=== PATIENT | male | born 1945 | race Caucasian/White ===

== ENCOUNTER 2017-01-04 15:28 | Observation (INO) | payer MEDICARE, OTHER ==
[2017-01-04] MEDS ORDERED: Pepcid 20 MG VIAL IV ONE ×2 (15:33→15:58)
[2017-01-04] MEDS ORDERED: BABY ASPIRIN 81 MG CHEW PO ONE (15:33)
[2017-01-04] MEDS ORDERED: NITRO-BID 2% UD PACKETS TOP ONE (15:33)
--- NOTE | 2017-01-04 15:39 | ERPHSYRPT ---
- History of Present Illness Time Seen by Provider: 01/04/17 15:33 Historian: patient Physician History: CC: chest pain Hx: 71 y/o patient of [place] and Dr Ames. He had prior coronary stenting 20 years ago. Today while watching TV he had a sharp burning pain and soreness in chest and below shoulder blades about an hour ago. Better now. Shoulder blade pain still present. He has had some pain like this in the past 3 weks which is unsual. Takes a baby asa daily. Does not use NTG. ILL: DM, CAD s/p stenting 20 years ago, HTN, hypothyroidism Surg: Coronary stenting Social: , nonsmoker, no alcohol ALL: None Activities at Onset: rest (watching TV) Severity of Pain-Max: severe Severity of Pain-Current: mild Nitro Today/Relief: no nitro taken today Aspirin Treatment Today: 81 mg x 2, provided by ED Allergies/Adverse Reactions: No Known Drug Allergies Allergy (Unverified 01/04/17 15:40) Home Medications: Acarbose 50 mg PO TID 06/08/12 [History] Folic Acid 0.4 mg PO DAILY 06/08/12 [History] Glipizide Xl 10 mg [Glucotrol Xl 10 MG] 10 mg PO BID 06/08/12 [History] Ibuprofen 200 mg PO QID 06/08/12 [History] Losartan Potassium 25 mg PO DAILY 06/08/12 [History] Metformin HCl 1000 mg [Glucophage 1000 MG] 1,000 mg PO BID 06/08/12 [History] Metoprolol Tartrate 25 mg [Lopressor 25MG Tab] 50 mg PO BID 06/08/12 [History ] Simvastatin 40 mg [Zocor 40 mg] 40 mg PO DAILY 06/08/12 [History] Brimonidine Tartrate 5 ml OP TID 01/04/17 [History] Brinzolamide [Azopt] 5 ml OP TID 01/04/17 [History] Furosemide 20 mg PO DAILY 01/04/17 [History] Latanoprost 2.5 ml OP DAILY 01/04/17 [History] Levothyroxine Sodium 100 Mcg [Synthroid 100 Mcg] 100 mcg PO DAILY 01/04/17 [History] Vitamin E 400 Units [Vitamin E 400 UNIT SOFTGEL] 400 unit PO DAILY [History] Hx Tetanus, Diphtheria Vaccination/Date Given: Yes (unknown) Hx Influenza Vaccination/Date Given: Yes (may 2012) Hx Pneumococcal Vaccination/Date Given: Yes (2010) - Review of Systems Constitutional: Malaise, No Fever, No Chills Eyes: No Symptoms Ears, Nose, & Throat: No Symptoms Respiratory: No Cough, No Dyspnea Cardiac: Chest Pain Abdominal/Gastrointestinal: Nausea, Vomiting (X1 with the chest pain), No Abdominal Pain Genitourinary Symptoms: No Symptoms Musculoskeletal: Back Pain Skin: No Rash Neurological: No Headache All Other Systems: Reviewed and Negative - Past Medical History Pertinent Past Medical History: Yes ENT History: No Pertinent History Cardiac History: Coronary Artery Disease, High Cholesterol, Hypertension Respiratory History: No Pertinent History Endocrine Medical History: Diabetes Type II, Hypothyroidism Musculoskeletal History: No Pertinent History GI Medical History: No Pertinent History History: No Pertinent History Psycho-Social History: No Pertinent History Male Reproductive Disorders: No Pertinent History - Past Surgical History Past Surgical History: Yes Cardiac: Cardiac Catheterization, Cardiac Stent - Social History Smoking Status: Never smoker Drug Use: none Patient Lives Alone: No - Physical Exam General Appearance: alert Eye Exam: PERRL/EOMI Ears, Nose, Throat Exam: normal ENT inspection, moist mucous membranes Neck Exam: normal inspection, non-tender, supple Respiratory Exam: normal breath sounds, lungs clear Cardiovascular Exam: regular rate/rhythm, No murmur Gastrointestinal/Abdomen Exam: soft, No tenderness, No distention, No mass, No guarding Extremity Exam: pedal edema Neurologic Exam: alert, oriented x 3, cooperative, sensation nml, No motor deficits Skin Exam: warm, dry, No rash - Course Nursing assessment & vital signs reviewed: Yes EKG Interpreted by Me: RATE (76), Sinus Rhythm, NORMAL AXIS, NORMAL INTERVALS ( QTc 429), NORMAL QRS, NORMAL ST-T, Other (Poor R wave progression) - Radiology Exams cxr X-ray Interpretation: Reviewed by me (JARRETT, no acute) Ordered Tests: Active Orders 24 hr Category Date Time Status Check Embosser STAT Care 01/04/17 15:33 Active EKG-ER Only STAT Care 01/04/17 15:33 Active IV Insertion STAT Care 01/04/17 15:33 Active Pulse Oximetry (ED) STAT Care 01/04/17 15:33 Active CHEST 1 VIEW (PORTABLE) Stat Exams 01/04/17 15:33 Taken CBC W DIFF Stat Lab 01/04/17 15:30 Completed CMP Stat Lab 01/04/17 15:30 Completed NT PRO BNP Stat Lab 01/04/17 15:30 Completed TROPONIN Q3H Lab 01/04/17 15:30 Completed TROPONIN Q3H Lab 01/04/17 18:45 Ordered TROPONIN Q3H Lab 01/04/17 21:45 Ordered TROPONIN Q3H Lab 01/05/17 00:45 Ordered TROPONIN Q3H Lab 01/05/17 03:45 Ordered Medication Summary Discontinued Medications Generic Name Dose Route Start Last Admin Trade Name Freq PRN Reason Stop Dose Admin Aspirin 162 mg 01/04/17 15:33 01/04/17 16:07 Baby Aspirin 81 Mg Chew PO 01/04/17 15:34 162 mg STAT ONE Administration Aspirin Confirm 01/04/17 15:57 Baby Aspirin 81 Mg Chew Administered 01/04/17 15:58 Dose 162 mg .ROUTE .STK-MED ONE Famotidine 20 mg 01/04/17 15:33 01/04/17 16:08 Pepcid 20 Mg Vial IV 01/04/17 15:34 20 mg STAT ONE Administration Famotidine Confirm 01/04/17 15:58 Pepcid 20 Mg Vial Administered 01/04/17 15:59 Dose 20 mg IV .STK-MED ONE Nitroglycerin 1 gm 01/04/17 15:33 01/04/17 16:07 Nitro-Bid 2% Ud Packets TOP 01/04/17 15:34 1 gm STAT ONE Administration Nitroglycerin Confirm 01/04/17 15:57 Nitro-Bid 2% Ud Packets Administered 01/04/17 15:58 Dose 1 gm .ROUTE .STK-MED ONE Lab/Rad Data: Laboratory Result Diagrams 01/04/17 15:30 01/04/17 15:30 Laboratory Results 01/04/17 01/04/17 01/04/17 Range/Units 15:30 15:30 15:30 WBC 7.8 (4.0-10.5) K/mm3 RBC 4.71 (4.1-5.6) M/mm3 Hgb 14.7 (12.5-18.0) gm/dl Hct 44.5 (42-50) % MCV 94.5 (78-100) fl MCH 31.2 (26-32) pg MCHC 33.0 (32-36) g/dl RDW 13.5 (11.5-14.0) % Plt Count 165 (150-450) K/mm3 MPV 10.3 H (6-9.5) fl Gran % 52.9 (36.0-66.0) % Lymphocytes % 32.4 (24.0-44.0) % Monocytes % 9.3 (0.0-12.0) % Eosinophils % 4.9 (0.00-5.0) % Basophils % 0.5 (0.0-0.4) % Basophils # 0.04 (0-0.4) Sodium 136 (136-145) mEq/L Potassium 4.2 (3.5-5.1) mEq/L Chloride 102 (98-107) mEq/L Carbon Dioxide 25.0 (21-32) mEq/L Anion Gap 13.6 (5-15) MEQ/L BUN 20 (9-20) mg/dL Creatinine 1.07 (0.55-1.30) mg/dl Estimated GFR > 60 ML/MIN Glucose 259 H (70-110) MG/DL Calcium 9.4 (8.5-10.1) mg/dL Total Bilirubin 0.2 (0.2-1.0) mg/dL AST 22 (15-37) U/L ALT 22 (12-78) U/L Alkaline Phosphatase 67 (46-116) U/L Troponin I < 0.017 (0.000-0.056) ng/ml NT-Pro-B Natriuret Pep 142 H (0-125) pg/ml Serum Total Protein 7.4 (6.4-8.2) gm/dL Albumin 3.2 L (3.4-5.0) g/dL - Progress Progress Note: 01/04/17 16:43 Pain better with NTG paste. Currently pain free. [facility] He [facility] admission here. Called Dr Stephany Pope. Will place in chest pain observation for rule out [place]. Discussed with : Wei Will see patient in: hospital (observation) Counseled pt/family regarding: lab results, diagnosis, need for follow-up, rad results - Departure Time of Disposition: 16:44 Departure Disposition: Observation Clinical Impression: Chest pain, rule out acute myocardial infarction Type 2 diabetes mellitus Qualifiers: Diabetes mellitus complication status: with circulatory complication Diabetes mellitus complication detail: with other circulatory complications Diabetes mellitus jail insulin use: without jail use Qualified Code(s): E11.59 - Type 2 diabetes mellitus with other circulatory complications Condition: Stable Critical Care Time: No
[2017-01-04 15:49] LABS: BASOPHIL % 0.5 % (0.0-0.4); Eosinophil % 4.9 % (0.00-5.0); Granulocytes % 52.9 % (36.0-66.0); Lymphocytes % 32.4 % (24.0-44.0); Mean Cell Volume 94.5 fl (78-100); Mean Corpuscular Hemoglobin 31.2 pg (26-32); Mean Platelet Volume 10.3 fl (6-9.5); Monocytes % 9.3 % (0.0-12.0); Platelet Count 165 K/mm3 (150-450); Red Blood Count 4.71 M/mm3 (4.1-5.6); Red Cell Distribution Width 13.5 % (11.5-14.0); White Blood Count 7.8 K/mm3 (4.0-10.5)
[2017-01-04] MEDS ORDERED: BABY ASPIRIN 81 MG CHEW ONE (15:57)
[2017-01-04] MEDS ORDERED: NITRO-BID 2% UD PACKETS ONE (15:57)
[2017-01-04 16:35] LABS: ALBUMIN 3.2 g/dL (3.4-5.0); ALKALINE PHOSPHATASE 67 U/L (46-116); ANION GAP 13.6 MEQ/L (5-15); BILIRUBIN,TOTAL 0.2 mg/dL (0.2-1.0); BLOOD UREA NITROGEN 20 mg/dL (9-20); CHLORIDE 102 mEq/L (98-107); Glucose 259 MG/DL (70-110); Potassium 4.2 mEq/L (3.5-5.1); SGOT/AST 22 U/L (15-37); SGPT/ALT 22 U/L (12-78); SODIUM 136 mEq/L (136-145); Total Protein 7.4 gm/dL (6.4-8.2)
[2017-01-04] MEDS ORDERED: Zofran 4 MG/2 ML VIAL IV PRN (17:19)
[2017-01-04] MEDS ORDERED: MAALOX ES 30 ML UNIT DOSE PO PRN (17:19)
[2017-01-04] MEDS ORDERED: Senokot-S Tablet PO PRN (17:19)
[2017-01-04] MEDS ORDERED: TYLENOL 325 MG PO PRN (17:19)
[2017-01-04] MEDS ORDERED: MILK OF MAGNESIA 30 ML PO PRN (17:19)
--- NOTE | 2017-01-04 20:58 | XRAY ---
Indication: Chest pain. Comparison: December 13, 2010. Portable apical lordotic chest again demonstrates scattered calcified granulomas and minimal left base linear atelectasis/scarring. Remaining lungs clear. Heart is not enlarged for AP portable technique. Bony thorax intact again with mild osteopenia and degenerative changes. Impression: Nonacute chest with chronic features.
[2017-01-04] MEDS: NITRO-BID 2% UD PACKETS TOP SCH (21:54)
[2017-01-04] MEDS ORDERED: Pepcid 20 MG PO SCH (22:00)
--- NOTE | 2017-01-04 22:26 | PCM.HP ---
History of Present Illness - Chief Complaint Chief Complaint: chest pain r/o Date: 01/04/17 History of Present Illness: is a 71 year old male. with history of diabetes and coronary artery disease with a stent done 20 years ago who has been having progressively worsening burning in his chest with exertion for the last 3 to 4 weeks who suddenly started having sharp pains in the epigastric area and back to the shoulders at about 2 pm today that was severe. The pain caused him to start sweating then he vomitted and started feeling better. Vomiting is very rare for him he can't recall the last time he did. By the time he arrived at the ED the pain was improving. He described it as a burning pain as well. He currently is without pain. He has been working on diet and exercise and reports intentional weight loss of 70lbs in the last year. he is now having some left upper quadrant pains. - Review of Systems Constitutional: Weight Loss, No Fever, No Chills Eyes: No Symptoms Ears, Nose, & Throat: No Symptoms Respiratory: No Cough, No Short Of Breath Cardiac: Chest Pain, No Edema, No Syncope Abdominal/Gastrointestinal: Abdominal Pain, Nausea, No Vomiting, No Diarrhea Genitourinary Symptoms: No Dysuria Musculoskeletal: No Back Pain, No Neck Pain Skin: No Rash Neurological: No Dizziness, No Focal Weakness, No Sensory Changes Psychological: No Symptoms Endocrine: No Symptoms Hematologic/Lymphatic: No Symptoms Immunological/Allergic: No Symptoms Medications & Allergies Home Medications: Home Medication List Acarbose 50 mg PO TID 06/08/12 [History Confirmed 01/04/17] Folic Acid 0.4 mg PO DAILY 06/08/12 [History Confirmed 01/04/17] Glipizide Xl 10 mg [Glucotrol Xl 10 MG] 10 mg PO BID 06/08/12 [History Confirmed 01/04/17] Ibuprofen 400 mg PO HS 06/08/12 [History Confirmed 01/04/17] Losartan Potassium 50 mg PO DAILY 06/08/12 [History Confirmed 01/04/17] Metformin HCl 1000 mg [Glucophage 1000 MG] 1,000 mg PO BID 06/08/12 [History Confirmed 01/04/17] Metoprolol Tartrate 25 mg [Lopressor 25MG Tab] 50 mg PO BID 06/08/12 [ History Confirmed 01/04/17] Simvastatin 40 mg [Zocor 40 mg] 40 mg PO DAILY 06/08/12 [History Confirmed 01/04] Aspirin [Children's Aspirin] 81 mg PO DAILY 01/04/17 [History Confirmed 01/04/17 ] Brimonidine Tartrate 5 ml OP TID 01/04/17 [History Confirmed 01/04/17] Brinzolamide [Azopt] 5 ml OP TID 01/04/17 [History Confirmed 01/04/17] Furosemide 20 mg PO DAILY 01/04/17 [History Confirmed 01/04/17] Latanoprost 2.5 ml OP DAILY 01/04/17 [History Confirmed 01/04/17] Levothyroxine Sodium 100 Mcg [Synthroid 100 Mcg] 100 mcg PO DAILY 01/04/17 [History Confirmed 01/04/17] Vitamin E 400 Units [Vitamin E 400 UNIT SOFTGEL] 400 unit PO DAILY [History Confirmed 01/04/17] Allergies/Adverse Reactions: Allergies Allergy/AdvReac Type Severity Reaction Status Date / Time No Known Drug Allergies Allergy Unverified 01/04/17 18:06 - Past Medical History Past Medical History: Yes ENT History: No Pertinent History Cardiac History: Coronary Artery Disease, High Cholesterol, Hypertension Respiratory History: No Pertinent History Endocrine Medical History: Diabetes Type II, Hypothyroidism Musculoskelatal History: No Pertinent History GI Medical History: No Pertinent History History: No Pertinent History Pyscho-Social History: No Pertinent History Male Reproductive Disorders: No Pertinent History Comment: glaucoma - Past Surgical History Past Surgical History: Yes Cardiac History: Cardiac Catheterization, Cardiac Stent Other Surgical History: precancerous skin lesion to left back and left chest - Social History Smoking Status: Never smoker Exposure to second hand smoke: No Alcohol: None Drug Use: none Significant Family History: heart disease (brother [place]) - Physical Exam Vital Signs: Vital Signs - 24 hr Temp Pulse Pulse Resp BP Pulse Ox 01/04/17 20:00 95 01/04/17 17:15 97.9 F 73 20 175/78 95 01/04/17 16:39 68 18 139/72 94 L 01/04/17 16:00 95 01/04/17 15:33 97.7 F 75 76 20 180/88 95 General Appearance: no apparent distress, alert Neurologic Exam: alert, oriented x 3, cooperative, normal mood/affect, nml cerebellar function, nml station & gait, sensation nml, No motor deficits Eye Exam: PERRL/EOMI, eyes nml inspection Ears, Nose, Throat Exam: normal ENT inspection, TMs normal, pharynx normal, moist mucous membranes Neck Exam: normal inspection, non-tender, supple, full range of motion Respiratory Exam: normal breath sounds, lungs clear, No respiratory distress Cardiovascular Exam: regular rate/rhythm, normal heart sounds, normal peripheral pulses Gastrointestinal/Abdomen Exam: soft, normal bowel sounds, tenderness ( epigastric and left upper quadrant), other (obesity limits exam), No distention , No mass Back Exam: normal inspection, normal range of motion, No CVA tenderness, No vertebral tenderness Extremity Exam: normal inspection, normal range of motion, pelvis stable, pedal edema (1+ with mild diabetic lipoidica changes bilateral) Skin Exam: normal color, warm, dry, No rash Lymphatic Exam: No adenopathy Results - Labs Lab/Micro Results: Lab Results-Last 24 Hours 01/04/17 Range/Units 19:00 Troponin I < 0.017 (0.000-0.056) ng/ml - Other Procedures and Tests Respiratory Therapy 01/04/17 23:00 EKG ONCE 01/05/17 05:00 EKG ONCE 01/06/17 05:00 EKG ONCE 01/07/17 05:00 EKG ONCE Assessment/Plan (1) Chest pain, rule out acute myocardial infarction Current Visit: Yes Status: Acute Assessment & Plan: with the last 4 weeks of pains on exertion concern for cardiac nature to the pain trend troponins EKG was unremarkable tele unremarkable thus far. If negative given previous pain on exertion will discuss getting stress test with his water tester DR. Ames Optimize antihypertensives and diabetic medications continue statin and beta thierno received aspirin in ED. With his pains in the left upper quadrant and the burning will add GERD therapy as well. lovenox ppx Code(s): R07.9 - CHEST PAIN, UNSPECIFIED (2) GERD (gastroesophageal reflux disease) Current Visit: Yes Status: Acute Code(s): K21.9 - GASTRO-ESOPHAGEAL REFLUX DISEASE WITHOUT ESOPHAGITIS (3) Hypertension Current Visit: Yes Status: Acute Code(s): I10 - ESSENTIAL (PRIMARY) HYPERTENSION (4) Coronary artery disease Current Visit: Yes Status: Chronic Code(s): I25.10 - ATHSCL HEART DISEASE OF [place] CORONARY ARTERY W/O ANG PCTRS (5) Hyperlipidemia Current Visit: Yes Status: Chronic Code(s): E78.5 - HYPERLIPIDEMIA, UNSPECIFIED (6) Hypothyroid Current Visit: Yes Status: Chronic Code(s): E03.9 - HYPOTHYROIDISM, UNSPECIFIED (7) Morbid obesity with BMI of 45.0-49.9, adult Current Visit: Yes Status: Chronic Code(s): E66.01 - MORBID (SEVERE) OBESITY DUE TO EXCESS CALORIES; Z68.42 - BODY MASS INDEX (BMI) 45.0-49.9, ADULT (8) Type 2 diabetes mellitus Current Visit: Yes Status: Chronic Qualifiers: Diabetes mellitus complication status: with circulatory complication Diabetes mellitus complication detail: with other circulatory complications Diabetes mellitus joint terminal attack controller insulin use: without skilled nursing use Qualified Code( s): E11.59 - Type 2 diabetes mellitus with other circulatory complications
[2017-01-04] MEDS: NovoLOG Insulin SQ PRN (22:56)
[2017-01-04] MEDS ORDERED: Alphagan P 0.15% OP SCH (23:30)
[2017-01-04] MEDS ORDERED: Lopressor 25MG Tab PO SCH (23:30)
[2017-01-04] MEDS: Glucotrol Xl 10 MG PO SCH (23:44)
[2017-01-05] MEDS: NITRO-BID 2% UD PACKETS TOP SCH (05:34)
[2017-01-05] MEDS ORDERED: MEDICATION INTERVENTION MC SCH ×2 (07:15)
[2017-01-05 07:23] VITALS: BP 124/58; PULSE 61; O2SAT 94
--- NOTE | 2017-01-05 08:24 | PCM.DCORD ---
- Discharge Discharge Date: 01/05/17 Disposition: Home, Self-Care Condition: Stable Prescriptions: New Saxagliptin HCl [Onglyza] 5 mg PO DAILY #30 tablet Ranitidine HCl 300 mg PO DAILY #30 tablet Continue Folic Acid 0.4 mg PO DAILY Simvastatin 40 mg [Zocor 40 mg] 40 mg PO DAILY Ibuprofen 400 mg PO HS Metoprolol Tartrate 25 mg [Lopressor 25MG Tab] 50 mg PO BID Losartan Potassium 50 mg PO DAILY Acarbose 50 mg PO TID Metformin HCl 1000 mg [Glucophage 1000 MG] 1,000 mg PO BID Glipizide Xl 10 mg [Glucotrol Xl 10 MG] 10 mg PO BID Levothyroxine Sodium 100 Mcg [Synthroid 100 Mcg] 100 mcg PO DAILY Latanoprost 2.5 ml OP DAILY Brinzolamide [Azopt] 5 ml OP TID Brimonidine Tartrate 5 ml OP TID Vitamin E 400 Units [Vitamin E 400 UNIT SOFTGEL] 400 unit PO DAILY Furosemide 20 mg PO DAILY Aspirin [Children's Aspirin] 81 mg PO DAILY Additional Instructions: have set up with stress test with Dr. Pak Follow up with: SHILPI PAK [Primary Care Provider] - MILAGRO LUEVANO [Family Provider] - 1 Week
[2017-01-05] MEDS: Glucotrol Xl 10 MG PO SCH (08:36)
[2017-01-05] MEDS: NovoLOG Insulin SQ PRN (08:43)
[2017-01-05] MEDS ORDERED: Vitamin E 400 UNIT SOFTGEL PO SCH (10:00)
[2017-01-05] MEDS ORDERED: FOLIC ACID 0.4 MG PO SCH (10:00)
[2017-01-05] MEDS ORDERED: FOLATE 1 MG PO SCH (10:00)
[2017-01-05] MEDS ORDERED: NON-FORMULARY ITEM (Losartan Potassium [Losartan Potassium] 50 MG) PO SCH (10:00)
[2017-01-05] MEDS ORDERED: Cozaar 50 MG PO SCH (10:00)
[2017-01-05] MEDS ORDERED: SYNTHROID 100 MCG PO SCH (10:00)
[2017-01-05] MEDS ORDERED: Lopressor 50 MG PO SCH (10:00)
[2017-01-05] MEDS ORDERED: BRINZOLAMIDE OP SCH (10:00)
[2017-01-05] MEDS ORDERED: BABY ASPIRIN 81 MG CHEW PO SCH (10:00)
[2017-01-05] MEDS ORDERED: ECOTRIN 81 MG PO SCH (10:00)
[2017-01-05] MEDS ORDERED: Xalatan OP SCH (10:00)
[2017-01-05] MEDS ORDERED: NON-FORMULARY ITEM (Simvastatin 40 Mg [Zocor 40 Mg] 40 MG) PO SCH (10:00)
[2017-01-05] MEDS ORDERED: ENOXAPARIN SODIUM SQ SCH (10:00)
[2017-01-05] MEDS ORDERED: Ecotrin 325 MG PO SCH (10:00)
[2017-01-05] MEDS ORDERED: LASIX 20 MG PO SCH (10:00)
[2017-01-05] MEDS ORDERED: Alphagan P 0.15% OP SCH (10:00)
[2017-01-05] MEDS ORDERED: ACARBOSE 50 MG PO SCH (10:00)
--- NOTE | 2017-01-05 18:28 | PCM.DS ---
Discharge Summary Date of Admission: 01/04/17 17:10 Date of Discharge: 01/05/17 Admitting Physician: MILAGRO LUEVANO Primary Care Provider: SHILPI PAK Allergies Allergies No Known Drug Allergies Allergy (Unverified 01/04/17 18:06) Hospital Summary - Hospital Course Hospital Course: presented with distant hx of coronary artery disease with stenting 20 years ago and 4 weeks of worsening burning abdominal/chest pain on exertion and acute onset substernal and back sharp pains with burning as well as some left upper quadrant pain followed by diaphoresis and vomiting X1. He had normal ekg, aspirin and nitro past given. Home bp meds restarted and sugar meds with coverage. He was asymptomatic after leaving ED. Tele had no events. Troponins were trended and went from undetectable to detectable at risk range back to undetectable but never crossed the positive threashold. He was started on famotidine. He has not had any recurrence of the pain. he is tolerating activity and po without difficulty. His breathing is at baseline. No further nausea. He was discharged with H2 thierno to start and continue home meds. A1c was 10.0 and he is trying to control with po meds so Onglyza was added to his current therapy. He has lost 70 lbs since stopping actos 5 months ago he states and continues to work on weight loss. Follow up with his automotive parts counter person for consideration for stress testing Dr. Pak was arranged. - Vitals & Intake/Output Vital Signs: Vital Signs Temperature 98.1 F 01/05/17 07:15 Pulse Rate 61 01/05/17 07:15 Respiratory Rate 18 01/05/17 07:15 Blood Pressure 124/58 01/05/17 07:15 O2 Sat by Pulse Oximetry 94 L 01/05/17 08:00 Intake & Output: Intake & Output 01/03/17 01/04/17 01/05/17 01/06/17 11:59 11:59 11:59 11:59 Intake Total 1320 Balance 1320 Weight 142.428 kg - Lab Result Diagrams: 01/04/17 15:30 01/04/17 15:30 Lab Results-Last 24 Hrs: Accuchecks Date 01/05/17 Date 01/05/17 Time 07:30 Time 07:30 Accucheck Value: 165 Accucheck Value: 165 Accucheck Value: 230 Lab Results-Last 24 Hours 01/04/17 01/04/17 01/05/17 Range/Units 19:00 22:12 01:03 Hemoglobin A1c (4.5-6.2) Troponin I < 0.017 0.029 0.023 (0.000-0.056) ng/ml Triglycerides (30-200) mg/dL Cholesterol (100-200) mg/dL LDL Cholesterol (5-99) mg/dL HDL Cholesterol (35-60) mg/dL Heart Disease Risk Ratio TSH 3rd Generation (0.358-3.740) mIU/L 01/05/17 01/05/17 01/05/17 Range/Units 04:01 04:01 04:01 Hemoglobin A1c 10.0 H (4.5-6.2) Troponin I < 0.017 (0.000-0.056) ng/ml Triglycerides 129 (30-200) mg/dL Cholesterol 168 (100-200) mg/dL LDL Cholesterol 100 H (5-99) mg/dL HDL Cholesterol 43 (35-60) mg/dL Heart Disease Risk Ratio 3.9 TSH 3rd Generation 3.364 (0.358-3.740) mIU/L Micro Results-Entire Visit: Accuchecks Date 01/05/17 Date 01/05/17 Time 07:30 Time 07:30 Accucheck Value: 165 Accucheck Value: 165 Accucheck Value: 230 - Procedures and Test Procedures and Tests throughout Hospitalization: Therapy Orders & Screens 01/04/17 23:00 EKG ONCE Comment: 01/05/17 05:00 EKG ONCE Comment: 01/06/17 05:00 EKG ONCE Comment: 01/07/17 05:00 EKG ONCE Comment: Discharge Exam General Appearance: no apparent distress, alert, obese Neurologic Exam: alert, oriented x 3, cooperative, normal mood/affect, nml cerebellar function, sensation nml, No motor deficits Skin Exam: normal color, warm, dry Eye Exam: PERRL, EOMI, eyes nml inspection Ears, Nose, Throat Exam: normal ENT inspection, pharynx normal, moist mucous membranes Neck Exam: normal inspection, non-tender, supple, full range of motion Respiratory Exam: normal breath sounds, lungs clear, No respiratory distress Cardiovascular Exam: regular rate/rhythm, normal heart sounds Gastrointestinal/Abdomen Exam: soft, No tenderness, No mass Extremity Exam: normal inspection, normal range of motion Back Exam: normal inspection, normal range of motion, No CVA tenderness, No vertebral tenderness Male Genitalia Exam: deferred Rectal Exam: deferred Final Diagnosis/Problem List - Final Discharge Diagnosis/Problem (1) Chest pain, rule out acute myocardial infarction Status: Ruled-out (2) GERD (gastroesophageal reflux disease) Status: Acute (3) Hypertension Status: Acute (4) Coronary artery disease Status: Chronic (5) Hyperlipidemia Status: Chronic (6) Hypothyroid Status: Chronic (7) Morbid obesity with BMI of 45.0-49.9, adult Status: Chronic (8) Type 2 diabetes mellitus Status: Chronic - Discharge Disposition: Home, Self-Care Condition: Stable Prescriptions: New Saxagliptin HCl [Onglyza] 5 mg PO DAILY #30 tablet Ranitidine HCl 300 mg PO DAILY #30 tablet Continue Folic Acid 0.4 mg PO DAILY Simvastatin 40 mg [Zocor 40 mg] 40 mg PO DAILY Ibuprofen 400 mg PO HS Metoprolol Tartrate 25 mg [Lopressor 25MG Tab] 50 mg PO BID Losartan Potassium 50 mg PO DAILY Acarbose 50 mg PO TID Metformin HCl 1000 mg [Glucophage 1000 MG] 1,000 mg PO BID Glipizide Xl 10 mg [Glucotrol Xl 10 MG] 10 mg PO BID Levothyroxine Sodium 100 Mcg [Synthroid 100 Mcg] 100 mcg PO DAILY Latanoprost 2.5 ml OP DAILY Brinzolamide [Azopt] 5 ml OP TID Brimonidine Tartrate 5 ml OP TID Vitamin E 400 Units [Vitamin E 400 UNIT SOFTGEL] 400 unit PO DAILY Furosemide 20 mg PO DAILY Aspirin [Children's Aspirin] 81 mg PO DAILY Instructions: Gastroesophageal Reflux Disease (GERD), Atypical Chest Pain, GERD Diet Additional Instructions: have set up with stress test with Dr. Pak Follow up with: MILAGRO LUEVANO [Family Provider] - 01/13/17 10:30 am SHILPI PAK [Primary Care Provider] - 01/14/17 2:00 pm ([facility] ) Forms: Discharge Instructions
[2017-01-05] MEDS ORDERED: ZOCOR 20MG PO SCH (22:00)
== END 2017-01-05 09:15 | disposition home or self-care (01) ==
LOC: ED 15:28 → MED SURG 17:10
PROVIDERS: ADMIT Family Medicine; ATTEND Family Medicine
DX: R07.9 Chest pain, unspecified (principal); K21.9 Gastro-esophageal reflux disease without esophagitis; I10 Essential (primary) hypertension; I25.10 Atherosclerotic heart disease of native coronary artery without angina pectoris; E78.5 Hyperlipidemia, unspecified; E03.9 Hypothyroidism, unspecified; E66.01 Morbid (severe) obesity due to excess calories; Z68.42 Body mass index [BMI] 45.0-49.9, adult; E11.9 Type 2 diabetes mellitus without complications; Z79.4 Long term (current) use of insulin; Z79.899 Other long term (current) drug therapy
CPT/HCPCS: 36000; 36415; 71010; 80053; 80061; 82962; 83036; 83721; 83880; 84443; 84484; 85025; 93005; 93041; 93268; 96374; 99285; G0378; A9270-GY

== ENCOUNTER 2018-06-21 09:58 | Day surgery (SDC) | payer MEDICARE, OTHER ==
--- NOTE | 2018-06-21 07:58 | HP ---
DATE OF SURGERY: 06/21/2018 HISTORY OF PRESENT ILLNESS: The patient is a 72 year-old with a growth on his back for quite a while, increasing in size, in need of wide excision. He had other skin lesion squamous cell excised by Dr. Lofton in the past. PAST MEDICAL HISTORY: Heart disease in the past. Arthritis in the past. He is seen by Dr. Ames. PAST SURGICAL HISTORY: Coronary artery bypass graft x3 vessels in the past. MEDICATIONS: Aspirin, B-complex, brimonidine tartrate, vitamin E, folic acid, glipizide, Lasix, Latanoprost, levothyroxine, losartan, ALLERGIES: SENSITIVITY TO ASPIRIN NOT A TRUE ALLERGY HE TAKES COATED ASPIRIN OCCASIONALLY. FAMILY HISTORY: Diabetes. SOCIAL HISTORY: No smoking or alcohol abuse. REVIEW OF SYSTEMS: Twelve systems reviewed per admission assessment. No chest pain or palpitations other systems negative or noncontributory as above and per preadmission questionnaire. PHYSICAL EXAMINATION: GENERAL: No acute distress. HEENT: Sclerae nonicteric. NECK: No JVD. CHEST: Equal excursion, nonlabored breathing. CVS: Regular rate and rhythm. ABDOMEN: Soft. No peritoneal signs. EXTREMITIES: No significant edema. NEURO: Alert, oriented, moving extremities symmetrically. No gross motor deficits noted. IMPRESSION:
[2018-06-21] MEDS ORDERED: Versed 2 MG/2 ML Injection IV ONE (09:59)
[2018-06-21] MEDS ORDERED: DIPRIVAN 200 MG/20 ML IV ONE (09:59)
[2018-06-21] MEDS ORDERED: SUBLIMAZE 250 MCG/5 ML IV ONE (09:59)
[2018-06-21] MEDS ORDERED: Zemuron 100 MG/10 ML IV ONE (09:59)
[2018-06-21] MEDS ORDERED: Quelicin Fliptop 200 MG/10 ML IV ONE (09:59)
[2018-06-21] MEDS ORDERED: Lactated Ringers 1,000 ML IV ONE ×2 (10:14→11:28)
[2018-06-21] MEDS ORDERED: Lactated Ringers 1,000 ML IV SCH (10:30)
[2018-06-21] MEDS ORDERED: Sensorcaine 0.25% 10 ML ONE (11:28)
[2018-06-21] MEDS ORDERED: KEFZOL 1 GM ONE (13:13)
--- NOTE | 2018-06-21 15:20 | OP ---
SURGERY DATE/TIME: 06/21/2018 1320 PREOPERATIVE DIAGNOSIS: Nonhealing lesion of the back x2. POSTOPERATIVE DIAGNOSIS: Nonhealing lesion of the back x2. PROCEDURE: Excisional biopsy nonhealing back lesion x2 excised en bloc (approximately 6 cm with margins two nonhealing lesions excised en bloc). SURGEON: Dr. Roosevelt Douglass. CUSTOM STUDIO COORDINATOR: Andrew Gillis, Medical Student III. ANESTHESIA: General. ESTIMATED BLOOD LOSS: Minimal. INDICATIONS: As noted above. Risks and benefits explained in detail and not limited to and consent obtained. DESCRIPTION OF PROCEDURE AND FINDINGS: The patient is taken to the operating room. After official time out and no disagreement with planned procedure, general anesthesia induced. Placed in lateral position, appropriate padding and positioned per anesthesia and OR staff. Back was prepped and draped in usual sterile fashion. Marking out to normal appearing skin on either side dissection carried in spindle-shaped fashion including both of these nonhealing lesions that measured about 6 cm en bloc with margins. Dissection carried down to normal appearing subcutaneous tissue beneath. Specimen passed off. The wound closed was closed with deep and superficial subcu closed with 3-0 Vicryl and 2-0 Vicryl in interrupted fashion. Skin closed with 4-0 Vicryl running subcuticular fashion, interrupted 3-0 Prolene used to reinforce the area. Steri-Strips and sterile dressing applied. The patient tolerated the procedure well. There were no immediate complications. Findings discussed with family out in the waiting area.
[2018-06-21 15:45] VITALS: BP 169/91; PULSE 72; O2SAT 93
== END 2018-06-21 15:55 | disposition home or self-care (01) ==
LOC: SDC 09:58
PROVIDERS: ATTEND Surgery
DX: C44.519 Basal cell carcinoma of skin of other part of trunk (principal); R20.8 Other disturbances of skin sensation; L98.9 Disorder of the skin and subcutaneous tissue, unspecified; R06.02 Shortness of breath; J96.11 Chronic respiratory failure with hypoxia; M19.90 Unspecified osteoarthritis, unspecified site; I25.810 Atherosclerosis of coronary artery bypass graft(s) without angina pectoris; Z79.899 Other long term (current) drug therapy
CPT/HCPCS: 82962; 94250; 99100; J0330; J0690; J2250; J2704; J3010

== ENCOUNTER 2019-07-15 07:23 | Emergency (ER) | payer MEDICARE, OTHER ==
--- NOTE | 2019-07-15 07:57 | ERPHSYRPT ---
- History of Present Illness Time Seen by Provider: 07/15/19 07:57 Source: patient Patient Subjective Stated Complaint: PATIENT STATES HE FELL OUT OF BED AND HIT HIS EAR ON THE DRESSER Triage Nursing Assessment: PATIENT AMBULATED INTO ROOM WITH . CLEAN LACERATION TO RIGHT EAR. EDGES WELL APPROXIMATED. MODERATE AMOUNTS OF BLEEDING. Physician History: accidentally fell out of the bed and hit the right ear for the dresser. Has a 2 cm horizontal laceration to the middle of the right is ear lobule Timing/Duration: today Severity: moderate Associated Symptoms: denies symptoms, other Allergies/Adverse Reactions: aspirin Adverse Reaction (Mild, Verified 07/15/19 07:48) Stomach Pain Home Medications: Acarbose 50 mg PO TID 06/08/12 [History] Glipizide Xl 10 mg [Glucotrol Xl 10 MG] 10 mg PO BID 06/08/12 [History] Losartan Potassium 50 mg PO DAILY 06/08/12 [History] Metformin HCl 1000 mg [Glucophage 1000 MG] 1,000 mg PO BID 06/08/12 [History] Metoprolol Tartrate 25 mg [Lopressor 25MG Tab] 50 mg PO BID 06/08/12 [ History] Simvastatin 40 mg [Zocor 40 mg] 40 mg PO DAILY 06/08/12 [History] Brimonidine Tartrate 5 ml OP TID 01/04/17 [History] Furosemide 20 mg PO DAILY 01/04/17 [History] Vitamin E 400 Units [Vitamin E 400 UNIT SOFTGEL] 400 unit PO DAILY [History] Aspirin [Aspirin EC] 81 mg PO DAILY 06/20/18 [History] Cholecalciferol (Vitamin D3) [Vitamin D3] 2,000 unit PO DAILY 06/20/18 [History] Clopidogrel Bisulfate 75 mg [PLAVIX 75 MG Tablet] 75 mg PO DAILY 06/20/18 [History] Cyanocobalamin/Folic Acid [Vitamin I93-Dguhv Acid Tablet] 1,000 mg PO DAILY 12/02 [History] Folic Acid 0.8 mg PO DAILY 06/20/18 [History] Latanoprost/Pf [Latanoprost 0.005% Eye Drop] 7.5 ml OP DAILY 06/20/18 [History] Levothyroxine Sodium 112 Mcg [Synthroid 112 Mcg] 112 mcg PO DAILY 06/20/18 [History] Hx Tetanus, Diphtheria Vaccination/Date Given: Yes Hx Influenza Vaccination/Date Given: Yes Hx Pneumococcal Vaccination/Date Given: Yes Immunizations Up to Date: Yes - Review of Systems Constitutional: No Fever, No Chills Eyes: No Symptoms Ears, Nose, & Throat: No Symptoms, Other (rright ear lobeM) Respiratory: No Symptoms (right earlobule middle part 2 cm, linear, clean laceration.), No Cough, No Dyspnea Cardiac: No Chest Pain, No Edema, No Syncope Abdominal/Gastrointestinal: No Abdominal Pain, No Nausea, No Vomiting, No Diarrhea Genitourinary Symptoms: No Dysuria Musculoskeletal: No Back Pain, No Neck Pain Skin: Other (right earlobule middle part 2 cm, linear, clean laceration.), No Rash Neurological: No Dizziness, No Focal Weakness, No Sensory Changes Psychological: No Symptoms Endocrine: No Symptoms All Other Systems: Reviewed and Negative - Past Medical History Pertinent Past Medical History: Yes Neurological History: No Pertinent History ENT History: Glaucoma Cardiac History: Coronary Artery Disease, High Cholesterol, Hypertension Respiratory History: No Pertinent History Endocrine Medical History: Diabetes Type II, Hypothyroidism Musculoskeletal History: No Pertinent History GI Medical History: GERD History: No Pertinent History Psycho-Social History: No Pertinent History Male Reproductive Disorders: No Pertinent History Other Medical History: glaucoma - Past Surgical History Past Surgical History: Yes Neuro Surgical History: No Pertinent History Cardiac: CABG, Cardiac Catheterization, Cardiac Stent Respiratory: No Pertinent History Gastrointestinal: No Pertinent History Genitourinary: No Pertinent History Musculoskeletal: No Pertinent History Male Surgical History: No Pertinent History Other Surgical History: precancerous skin lesion to left back and left chest - Social History Smoking Status: Never smoker Exposure to second hand smoke: No Drug Use: none Patient Lives Alone: No Significant Family History: heart disease (brother [place]) - Nursing Vital Signs Nursing Vital Signs: Initial Vital Signs Temperature 97.7 F 07/15/19 07:51 Pulse Rate 60 07/15/19 07:51 Respiratory Rate 16 07/15/19 07:51 Blood Pressure 147/68 07/15/19 07:51 O2 Sat by Pulse Oximetry 95 07/15/19 07:51 Pain Scale Pain Intensity 2 - Physical Exam General Appearance: no apparent distress, alert Eye Exam: PERRL/EOMI, eyes nml inspection Ears, Nose, Throat Exam: normal ENT inspection, TMs normal, pharynx normal, moist mucous membranes, other (right earlobule middle part 2 cm, linear, clean laceration.) Neck Exam: normal inspection, non-tender, supple, full range of motion Respiratory Exam: normal breath sounds, lungs clear, No respiratory distress Cardiovascular Exam: regular rate/rhythm, normal heart sounds, normal peripheral pulses Gastrointestinal/Abdomen Exam: soft, normal bowel sounds, No tenderness, No mass Back Exam: normal inspection, normal range of motion, No CVA tenderness, No vertebral tenderness Extremity Exam: normal inspection, normal range of motion, pelvis stable Neurologic Exam: alert, oriented x 3, cooperative, normal mood/affect, nml cerebellar function, nml station & gait, sensation nml, No motor deficits Skin Exam: normal color, warm, dry, other (right earlobule middle part 2 cm, linear, clean laceration.nno active bleeding. The edges are approximated very well.), No rash Lymphatic Exam: No adenopathy SpO2: 95 Procedures - Laceration/Wound Repair Right Lateral Ear Wound Length (cm): 2.5 Wound's Depth, Shape: superficial, linear Wound Explored: clean Irrigated: No Hibiclens Prep: Yes Anesthesia: local (Auricular block) Volume Anesthetic (ccs): 10 Wound Repaired With: sutures Suture Size/Type: 4-0, ethilon Number of Sutures: 6 Layer Closure?: No Sterile Dressing Applied?: Yes Splint Applied?: No Sling Applied?: No - Course Nursing assessment & vital signs reviewed: Yes Ordered Tests: Active Orders 24 hr Category Date Time Status Dressing Care ROUTINE Care 07/15/19 08:17 Ordered Medication Summary Discontinued Medications Generic Name Dose Route Start Last Admin Trade Name Freq PRN Reason Stop Dose Admin Bacitracin Zinc 0.9 gm 07/15/19 08:17 Baciguent Packet TP 07/15/19 08:18 STAT ONE Lidocaine HCl 10 ml 07/15/19 07:59 07/15/19 08:03 Xylocaine 1% Hcl 20 Ml Mdv SUBDERMAL 07/15/19 08:00 10 ml STAT ONE Administration Lidocaine HCl Confirm 07/15/19 07:59 Xylocaine 1% Hcl 20 Ml Mdv Administered 07/15/19 08:00 Dose 10 ml .ROUTE .STK-MED ONE - Progress Progress: improved Progress Note: 07/15/19 08:19 right Ear wound sutured in the er by me under auricular block.no complications. The patient tolerated the procedure well. No life-threatening condition on discharge. Advised patient to have sutures taken out in 7-10 days by PCP or come to the ER for the same. Counseled pt/family regarding: diagnosis, need for follow-up - Departure Departure Disposition: Home Clinical Impression: Ear lobe laceration Qualifiers: Encounter type: initial encounter Laterality: right Qualified Code(s): S01.311A - Laceration without foreign body of right ear, initial encounter Condition: Good Critical Care Time: No Referrals: TAVON GUERRA [Primary Care Provider] - 07/25/19 Instructions: Laceration Repair With Stitches (DC) Additional Instructions: see PCP early if any signs of infection or any other symptoms. Return to the ER for emergency
[2019-07-15] MEDS ORDERED: XYLOCAINE 1% HCL 20 ML MDV SUBDERMAL ONE (07:59)
[2019-07-15] MEDS ORDERED: XYLOCAINE 1% HCL 20 ML MDV ONE (07:59)
[2019-07-15] MEDS ORDERED: BACIGUENT PACKET TP ONE (08:17)
[2019-07-15] MEDS ORDERED: BACIGUENT PACKET ONE (08:20)
[2019-07-15 08:33] VITALS: BP 123/71; PULSE 52; O2SAT 93
== END 2019-07-15 08:42 | disposition home or self-care (01) ==
LOC: ED 07:23
DX: S01.311A Laceration without foreign body of right ear, initial encounter (principal); W06.XXXA Fall from bed, initial encounter; Z79.899 Other long term (current) drug therapy
CPT/HCPCS: 12011; 99283; A9270-GY

== ENCOUNTER 2019-07-25 12:48 | Emergency (ER) | payer MEDICARE, OTHER ==
[2019-07-25 12:55] VITALS: O2SAT 95
--- NOTE | 2019-07-25 13:05 | ERPHSYRPT ---
- History of Present Illness Time Seen by Provider: 07/25/19 12:50 Source: patient Exam Limitations: no limitations Patient Subjective Stated Complaint: Stitch removal to right ear Triage Nursing Assessment: Pt came into the ER for removal of stitches to the right ear that were placed 11 days ago, pt doesn't appear to be in any distress Physician History: Patient had 6 sutures placed in his right ear on 07/15/2019. He is here to have them removed. He denies any bleeding, wound gaping, redness to the ear, or any swelling to the ear. Timing/Duration: day(s) (10) Quality: other (no symptoms) Severity: mild Location: other (right ear) Possible Causes: other (laceration from injury) Modifying Factors: Improves With: other (sutures stopped the bleeding and reapproximated the laceration well) Associated Symptoms: No blisters, No change in skin texture, No difficulty breathing, No edema, No fever, No flushing, No headache, No hives, No jaundice, No malaise, No nasal congestion, No numbness, No paresthesia, No petechiae, No rash, No sore throat, No swelling/mass/lumps, No tingling Allergies/Adverse Reactions: aspirin Adverse Reaction (Mild, Verified 07/25/19 12:55) Stomach Pain Home Medications: Acarbose 50 mg PO TID 06/08/12 [History] Glipizide Xl 10 mg [Glucotrol Xl 10 MG] 10 mg PO BID 06/08/12 [History] Losartan Potassium 50 mg PO BID 06/08/12 [History] Metformin HCl 1000 mg [Glucophage 1000 MG] 1,000 mg PO BID 06/08/12 [History] Metoprolol Tartrate 25 mg [Lopressor 25MG Tab] 50 mg PO BID 06/08/12 [ History] Brimonidine Tartrate 5 ml OP TID 01/04/17 [History] Furosemide 20 mg PO DAILY 01/04/17 [History] Vitamin E 400 Units [Vitamin E 400 UNIT SOFTGEL] 400 unit PO DAILY [History] Aspirin [Aspirin EC] 81 mg PO BID 06/20/18 [History] Cholecalciferol (Vitamin D3) [Vitamin D3] 2,000 unit PO DAILY 06/20/18 [History] Cyanocobalamin/Folic Acid [Vitamin Y93-Tgyyz Acid Tablet] 1,000 mg PO DAILY 12/02 [History] Folic Acid 0.8 mg PO DAILY 06/20/18 [History] Latanoprost/Pf [Latanoprost 0.005% Eye Drop] 7.5 ml OP DAILY 06/20/18 [History] Levothyroxine Sodium 112 Mcg [Synthroid 112 Mcg] 112 mcg PO DAILY 06/20/18 [History] Atorvastatin Calcium [Lipitor] 40 mg PO DAILY 07/15/19 [History] Hx Tetanus, Diphtheria Vaccination/Date Given: Yes Hx Influenza Vaccination/Date Given: Yes Hx Pneumococcal Vaccination/Date Given: Yes - Review of Systems Constitutional: No Fever, No Chills Eyes: No Eye Pain, No Eye Redness Ears, Nose, & Throat: No Ear Pain, No Ear Discharge, No Nose Pain, No Throat Pain Respiratory: No Cough, No Dyspnea Cardiac: No Chest Pain, No Edema, No Syncope Abdominal/Gastrointestinal: No Abdominal Pain, No Nausea, No Vomiting, No Diarrhea Genitourinary Symptoms: No Dysuria Musculoskeletal: No Back Pain, No Neck Pain Skin: No Rash Neurological: No Dizziness, No Focal Weakness, No Parasthesia, No Sensory Changes Psychological: No Anxiety Endocrine: No Symptoms Hematologic/Lymphatic: No Easy Bleeding, No Easy Bruising All Other Systems: Reviewed and Negative - Past Medical History Pertinent Past Medical History: Yes Neurological History: No Pertinent History ENT History: Glaucoma Cardiac History: Coronary Artery Disease, High Cholesterol, Hypertension Respiratory History: No Pertinent History Endocrine Medical History: Diabetes Type II, Hypothyroidism Musculoskeletal History: No Pertinent History GI Medical History: GERD History: No Pertinent History Psycho-Social History: No Pertinent History Male Reproductive Disorders: No Pertinent History Other Medical History: glaucoma - Past Surgical History Past Surgical History: Yes Neuro Surgical History: No Pertinent History Cardiac: CABG, Cardiac Catheterization, Cardiac Stent Respiratory: No Pertinent History Gastrointestinal: No Pertinent History Genitourinary: No Pertinent History Musculoskeletal: No Pertinent History Male Surgical History: No Pertinent History Other Surgical History: precancerous skin lesion to left back and left chest - Social History Smoking Status: Never smoker Exposure to second hand smoke: No Drug Use: none Patient Lives Alone: No Significant Family History: heart disease (brother [place]) - Nursing Vital Signs Nursing Vital Signs: Initial Vital Signs Temperature 98.0 F 07/25/19 12:51 Pulse Rate 81 07/25/19 12:51 Blood Pressure 174/82 07/25/19 12:51 O2 Sat by Pulse Oximetry 95 07/25/19 12:51 Pain Scale Pain Intensity 0 - Physical Exam General Appearance: no apparent distress, alert Eye Exam: PERRL/EOMI, eyes nml inspection, No scleral icterus, No pale conjunctivae Ears, Nose, Throat Exam: normal ENT inspection, TMs normal, pharynx normal, moist mucous membranes, other (six sutures in the inferior pinna that goes across the superior portion of the lobule to the posterior helix) Neck Exam: normal inspection, non-tender, supple, full range of motion Respiratory Exam: normal breath sounds, lungs clear, No respiratory distress Cardiovascular Exam: regular rate/rhythm, normal heart sounds, capillary refill <2 sec Back Exam: normal inspection, No CVA tenderness, No vertebral tenderness Extremity Exam: normal inspection, normal range of motion Neurologic Exam: alert, oriented x 3, cooperative, air brake tester II-XII nml as tested, normal mood/affect, sensation nml, No motor deficits Skin Exam: normal color, warm, dry SpO2 Interpretation: normal SpO2: 95 O2 Delivery: Room Air Procedures - Additional Procedures Progress: Suture removal: 6 interrupted sutures removed without difficulty from the right pinna. No bleeding or dehiscence noted, no drainage, no erythema. Dermabond placed over repaired laceration site to continue facilitate healing. - Progress Progress: improved Counseled pt/family regarding: diagnosis, need for follow-up - Departure Departure Disposition: Home Clinical Impression: Hypertension Qualifiers: Hypertension type: essential hypertension Qualified Code(s): I10 - Essential ( primary) hypertension Ear lobe laceration Qualifiers: Encounter type: subsequent encounter Laterality: right Qualified Code(s): S01.311D - Laceration without foreign body of right ear, subsequent encounter Condition: Good Critical Care Time: No Referrals: TAVON GUERRA [Primary Care Provider] - 07/26/19 OLIVIER KAMARA [NON-STAFF PHY W/O PRIVILEGES] - 07/26/19 (ENT specialist to follow -up with for your reference) Instructions: Stitches Removal, Laceration Repair With Glue (DC), High Blood Pressure (DC) Additional Instructions: Follow-up with ENT referral or your physician to continue evaluation healing of your laceration in the next day. Return if any bleeding, redness, fever, or pain to the right ear. Follow-up your blood pressure with your doctor in this next day also.
[2019-07-25 13:10] VITALS: BP 138/72; PULSE 73
== END 2019-07-25 13:16 | disposition home or self-care (01) ==
LOC: ED 12:48
DX: Z48.02 Encounter for removal of sutures (principal); S01.311D Laceration without foreign body of right ear, subsequent encounter; I10 Essential (primary) hypertension
CPT/HCPCS: 99283

== ENCOUNTER 2019-08-28 23:36 | Emergency (ER) | payer MEDICARE, OTHER ==
--- NOTE | 2019-08-29 00:12 | ERPHSYRPT ---
- History of Present Illness Source: patient Exam Limitations: no limitations Physician History: the patient is a 73-year-old male with a past history of low back pain with sciatica presents with a chief complaint of low back pain and left sciatica. He reportedly perform some physical therapy last week and started to experience low back pain either Thursday or of last week. The pain is described as a sharp pain that radiates down his left posterior leg in addition to the right lateral aspect of his right leg. The pain is reportedly constant severe. He was seen by her provider as an outpatient last week and report of a headache "steroid injection" and was prescribed Flexeril to take for the pain. He presents to the emergency department tonight because the pain reports that worse. The pain is currently moderate in severity and increases with bending and twisting of his torso. He denied weakness in his lower extremities and has been able to ambulate. He denies fever, chills, recent fall, anticoagulation use, bladder or bowel incontinence, numbness in his lower extremities and satellite anesthesia, or numbness of wiping his perineum. Patient denies known hx of malignancy. Patient refusing opiate pain medication Associated Symptoms: other (Back pain), No nausea, No vomiting, No abdominal pain, No shortness of breath Allergies/Adverse Reactions: aspirin Adverse Reaction (Mild, Verified 08/29/19 00:09) Stomach Pain Home Medications: Acarbose 50 mg PO TID 06/08/12 [History] Glipizide Xl 10 mg [Glucotrol Xl 10 MG] 10 mg PO BID 06/08/12 [History] Losartan Potassium 50 mg PO BID 06/08/12 [History] Metformin HCl 1000 mg [Glucophage 1000 MG] 1,000 mg PO BID 06/08/12 [History] Metoprolol Tartrate 25 mg [Lopressor 25MG Tab] 50 mg PO BID 06/08/12 [ History] Brimonidine Tartrate 5 ml OP TID 01/04/17 [History] Furosemide 20 mg PO DAILY 01/04/17 [History] Vitamin E 400 Units [Vitamin E 400 UNIT SOFTGEL] 400 unit PO DAILY [History] Aspirin [Aspirin EC] 81 mg PO BID 06/20/18 [History] Cholecalciferol (Vitamin D3) [Vitamin D3] 2,000 unit PO DAILY 06/20/18 [History] Cyanocobalamin/Folic Acid [Vitamin P45-Vgppm Acid Tablet] 1,000 mg PO DAILY 12/02 [History] Folic Acid 0.8 mg PO DAILY 06/20/18 [History] Latanoprost/Pf [Latanoprost 0.005% Eye Drop] 7.5 ml OP DAILY 06/20/18 [History] Levothyroxine Sodium 112 Mcg [Synthroid 112 Mcg] 112 mcg PO DAILY 06/20/18 [History] Atorvastatin Calcium [Lipitor] 40 mg PO DAILY 07/15/19 [History] Hx Tetanus, Diphtheria Vaccination/Date Given: Yes Hx Influenza Vaccination/Date Given: Yes Hx Pneumococcal Vaccination/Date Given: Yes - Review of Systems Constitutional: No Fever, No Chills Musculoskeletal: Back Pain Neurological: Other (Pain radiating down legs), No Focal Weakness, No Paralysis , No Parasthesia - Past Medical History Pertinent Past Medical History: Yes Neurological History: No Pertinent History ENT History: Glaucoma Cardiac History: Coronary Artery Disease, High Cholesterol, Hypertension Respiratory History: No Pertinent History Endocrine Medical History: Diabetes Type II, Hypothyroidism Musculoskeletal History: No Pertinent History GI Medical History: GERD History: No Pertinent History Psycho-Social History: No Pertinent History Male Reproductive Disorders: No Pertinent History Other Medical History: glaucoma - Past Surgical History Past Surgical History: Yes Neuro Surgical History: No Pertinent History Cardiac: CABG, Cardiac Catheterization, Cardiac Stent Respiratory: No Pertinent History Gastrointestinal: No Pertinent History Genitourinary: No Pertinent History Musculoskeletal: No Pertinent History Male Surgical History: No Pertinent History Other Surgical History: precancerous skin lesion to left back and left chest - Social History Smoking Status: Never smoker Exposure to second hand smoke: No Drug Use: none Patient Lives Alone: No Significant Family History: heart disease (brother [place]) - Nursing Vital Signs Nursing Vital Signs: Initial Vital Signs Temperature 98.9 F 08/29/19 00:10 Pulse Rate 67 08/29/19 00:10 Respiratory Rate 18 08/29/19 00:10 Blood Pressure 154/82 08/29/19 00:10 O2 Sat by Pulse Oximetry 96 08/29/19 00:10 Pain Scale Pain Intensity 8 - Physical Exam General Appearance: no apparent distress, obese Eye Exam: PERRL/EOMI, eyes nml inspection Ears, Nose, Throat Exam: normal ENT inspection Neck Exam: normal inspection, supple Respiratory Exam: normal breath sounds, lungs clear, airway intact, No chest tenderness, No respiratory distress Cardiovascular Exam: regular rate/rhythm, normal heart sounds, normal peripheral pulses, capillary refill <2 sec, edema, other (Bilateral trace lower extremity edema), No murmur, No friction rub, No gallop Gastrointestinal/Abdomen Exam: soft, No tenderness Back Exam: normal inspection, other (Mild tenderness over coccyx) Extremity Exam: pedal edema, other (Hip flexion 4+ bilaterally, knee extension and flexion 4+ bilateral, dorsiflexion and plantar flexion 4+ bilaterally, patient able to stand and walk without difficulty and able to walk on tips of toes. ) Neurologic Exam: alert, oriented x 3, other (Sensation in the L4, L5, and S1 distribution intact and equal in both feet. No ankle clonus, patellar reflex 2 + bilaterally, unable to illicit ankle reflex. ) SpO2 Interpretation: normal O2 Delivery: Room Air - Course Nursing assessment & vital signs reviewed: Yes - CT Exams Lumbar Spine CT Interpretation: Tele-radiologist Report (No acute fractures or spondylolisthesis. Significant stenosis of the spinal canal and neural formmina most pronounced at L2-3 and through L4-5) Ordered Tests: Active Orders 24 hr Category Date Time Status LUMBAR SPINE WITH [CT] Stat Exams 08/29/19 00:40 Ordered BMP Stat Lab 08/29/19 01:09 Completed CBC W DIFF Stat Lab 08/29/19 01:09 Completed ESR [Erythrocyte Sedimentation Rate] Stat Lab 08/29/19 01:09 Completed Medication Summary Discontinued Medications Generic Name Dose Route Start Last Admin Trade Name Yonatanq PRN Reason Stop Dose Admin Acetaminophen 975 mg 08/29/19 00:43 08/29/19 00:54 Tylenol 325 Mg PO 08/29/19 00:44 975 mg STAT ONE Administration Acetaminophen Confirm 08/29/19 00:46 Tylenol 325 Mg Administered 08/29/19 00:47 Dose 975 mg .ROUTE .STK-MED ONE Hydromorphone HCl Confirm 08/29/19 03:28 Hydromorphone 1 Mg/Ml Ampule Administered 08/29/19 03:29 Dose 1 mg .ROUTE .STK-MED ONE Hydromorphone HCl Confirm 08/29/19 04:13 Hydromorphone 1 Mg/Ml Ampule Administered 08/29/19 04:14 Dose 1 mg .ROUTE .STK-MED ONE Hydromorphone HCl 1 mg 08/29/19 04:14 08/29/19 03:25 Hydromorphone 1 Mg/Ml Ampule IV 08/29/19 04:15 1 mg STAT ONE Administration Hydromorphone HCl 0.5 mg 08/29/19 04:14 08/29/19 04:00 Hydromorphone 1 Mg/Ml Ampule IV 08/29/19 04:15 0.5 mg STAT ONE Administration Ceftriaxone Sodium/Dextrose 1 g in 50 mls @ 100 mls/hr 08/29/19 02:40 Rocephin 1 Gm-D5w 50 Ml Bag IV 08/29/19 03:09 STAT STA Ketorolac Tromethamine 30 mg 08/29/19 00:42 08/29/19 00:53 Toradol 30 Mg Injection IM 08/29/19 00:43 30 mg STAT ONE Administration Ketorolac Tromethamine Confirm 08/29/19 00:46 Toradol 30 Mg Injection Administered 08/29/19 00:47 Dose 30 mg .ROUTE .STK-MED ONE Lidocaine 1 patch 08/29/19 00:41 08/29/19 00:54 Lidoderm Patch 5% TOP 08/29/19 00:42 1 patch ONCE STA Administration Ondansetron HCl Confirm 08/29/19 03:28 Zofran 4 Mg/2 Ml Vial Administered 08/29/19 03:29 Dose 4 mg .ROUTE .STK-MED ONE Ondansetron HCl 4 mg 08/29/19 03:25 08/29/19 03:25 Zofran 4 Mg/2 Ml Vial IV 08/29/19 03:26 4 mg STAT ONE Administration Lab/Rad Data: Laboratory Result Diagrams 08/29/19 01:09 08/29/19 01:09 Laboratory Results 08/29/19 08/29/19 Range/Units 01:09 01:09 WBC 8.9 (4.0-10.5) K/mm3 RBC 4.45 (4.1-5.6) M/mm3 Hgb 14.3 (12.5-18.0) gm/dl Hct 42.5 (42-50) % MCV 95.5 (78-100) fl MCH 32.1 H (26-32) pg MCHC 33.6 (32-36) g/dl RDW 13.6 (11.5-14.0) % Plt Count 187 (150-450) K/mm3 MPV 10.1 (7.5-11.0) fl Gran % 52.5 (36.0-66.0) % Eos # (Auto) 0.24 (0-0.5) Absolute Lymphs (auto) 3.03 (1.0-4.6) Absolute Monos (auto) 0.92 (0.0-1.3) Lymphocytes % 33.9 (24.0-44.0) % Monocytes % 10.3 (0.0-12.0) % Eosinophils % 2.7 (0.00-5.0) % Basophils % 0.6 (0.0-0.4) % Absolute Granulocytes 4.69 (1.4-6.9) Basophils # 0.05 (0-0.4) ESR 16 H (0-15) mm/hr Sodium 140 (137-145) mmol/L Potassium 4.5 (3.5-5.1) mmol/L Chloride 102 (98-107) mmol/L Carbon Dioxide 28 (22-30) mmol/L Anion Gap 14.7 (5-15) MEQ/L BUN 24 H (9-20) mg/dL Creatinine 1.00 (0.66-1.25) mg/dL Estimated GFR > 60.0 ML/MIN Glucose 182 H (74-106) mg/dL Calcium 10.3 H (8.4-10.2) mg/dL - Progress Progress Note: 08/29/19 04:18 The patient was unable to position himself in a prone position due to pain and his CT was aborted. I then spoke to him about the need for the CT and he agreed to try again after receiving pain medication - Departure Departure Disposition: Home Clinical Impression: Back pain, Sciatica, Spinal stenosis of lumbar region, Ear lobe laceration Condition: Good Critical Care Time: No Referrals: CHARLIE,SHREELEKHA [Primary Care Provider] - Instructions: Low Back Pain in Adults, Spinal Stenosis Prescriptions: Hydrocodone/APAP 5/325 [[place] 5/325 mg] 1 each PO Q6H PRN PRN #10 tablet MDD 6 PRN Reason: Pain Ibuprofen 200 mg [Motrin 200 mg] 400 mg PO Q8H PRN PRN 5 Days #30 tablet PRN Reason: Pain Lidocaine 1 each TP DAILY PRN #20 adh..patch PRN Reason: Pain
[2019-08-29] MEDS ORDERED: Lidoderm Patch 5% TOP STA (00:41)
[2019-08-29] MEDS ORDERED: TORAdol 30 mg Injection IM ONE (00:42)
[2019-08-29] MEDS ORDERED: TYLENOL 325 MG PO ONE (00:43)
[2019-08-29] MEDS ORDERED: TORAdol 30 mg Injection ONE (00:46)
[2019-08-29] MEDS ORDERED: TYLENOL 325 MG ONE (00:46)
[2019-08-29 01:12] LABS: Absolute Neutrophil Ct (ANC) 4.69 (1.4-6.9); BASOPHIL % 0.6 % (0.0-0.4); Basophil (Absolute #) 0.05 (0-0.4); Eosinophil % 2.7 % (0.00-5.0); Eosinophil (Absolute #) 0.24 (0-0.5); Hematocrit 42.5 % (42-50); Hemoglobin 14.3 gm/dl (12.5-18.0); Lymphocyte (Absolute #) 3.03 (1.0-4.6); Lymphocytes % 33.9 % (24.0-44.0); Mean Cell Volume 95.5 fl (78-100); Mean Corpuscular Hemoglobin 32.1 pg (26-32); Mean Corpuscular Hgb Concent. 33.6 g/dl (32-36); Mean Platelet Volume 10.1 fl (7.5-11.0); Monocyte (Absolute #) 0.92 (0.0-1.3); Monocytes % 10.3 % (0.0-12.0); Neutrophil % 52.5 % (36.0-66.0); Platelet Count 187 K/mm3 (150-450); Red Blood Count 4.45 M/mm3 (4.1-5.6); Red Cell Distribution Width 13.6 % (11.5-14.0); White Blood Count 8.9 K/mm3 (4.0-10.5)
[2019-08-29 01:23] LABS: ANION GAP 14.7 MEQ/L (5-15); BLOOD UREA NITROGEN 24 mg/dL (9-20); CHLORIDE 102 mmol/L (98-107); Calcium 10.3 mg/dL (8.4-10.2); Carbon Dioxide 28 mmol/L (22-30); Glucose 182 mg/dL (74-106); Potassium 4.5 mmol/L (3.5-5.1); SODIUM 140 mmol/L (137-145)
[2019-08-29 01:43] LABS: Erythrocyte Sedimentation Rate 16 mm/hr (0-15)
[2019-08-29 02:35] VITALS: BP 151/74; PULSE 62; O2SAT 96
[2019-08-29] MEDS ORDERED: ROCEPHIN 1 Gm-D5w 50 ml Bag** 1 G/50 ML IVPB IV STA (02:40)
[2019-08-29] MEDS ORDERED: Zofran 4 MG/2 ML VIAL IV ONE (03:25)
[2019-08-29] MEDS ORDERED: Hydromorphone 1 mg/ml Ampule ONE ×2 (03:28→04:13)
[2019-08-29] MEDS ORDERED: Zofran 4 MG/2 ML VIAL ONE (03:28)
[2019-08-29] MEDS ORDERED: Hydromorphone 1 mg/ml Ampule IV ONE ×2 (04:14)
--- NOTE | 2019-08-29 09:30 | XRAY ---
Indication: Low back pain. Bilateral sciatica 3 days. No known injury. Multiple contiguous axial images obtained through the lumbar spine using 80 cc Isovue 370 contrast as ordered.. Two-dimensional sagittal and coronal reformatted images obtained. Comparison: None Osseous structures are demineralized consistent with patient's age. Moderate multilevel bridging/nonbridging thoracolumbar endplate osteophytes. L2-S1 broad-based disc bulge greatest at the L3-L4 level where there is spinal canal stenosis compounded by bilateral degenerative facet hypertrophy. Also bilateral L3-S1 foraminal stenosis. Incidental L2-L5 degenerative vacuum disc phenomena. Sagittal and coronal reformatted images demonstrates normal lumbar alignment with multilevel disc space narrowing, greatest at the L5-S1 level. No acute compression fracture or subluxation. There is mild scattered aortoiliac calcifications without AAA. Remaining visualized contrasted soft tissues are unremarkable. Impression: 1. Negative acute fracture/subluxation. 2. Multilevel degenerative disc disease, greatest at the L3-L4 level. Outpatient MRI may yield further information. 3. Incidental osteopenia and scattered vascular calcifications. Comment: Preliminary interpretation was made by [facility]. No critical discrepancy.
== END 2019-08-29 05:19 | disposition home or self-care (01) ==
LOC: ED 23:36
DX: M54.40 Lumbago with sciatica, unspecified side (principal)
CPT/HCPCS: 36000; 36415; 72131; 80048; 85025; 85652; 96372; 96374; 96375; 99284; J1170; J1885; J2405; A9270-GY